=== PATIENT | female | born 2005 | race African-American/Black ===

== ENCOUNTER 2025-08-21 03:57 | Emergency (ER) | payer BC ==
[2025-08-21] MEDS ORDERED: Tranexamic Acid 1,000 MG/10 ML VIAL ONE (06:44)
== END 2025-08-21 06:45 | disposition home or self-care (01) ==
LOC: ERS 03:57
DX: S00.552A Superficial foreign body of oral cavity, initial encounter (principal); L08.9 Local infection of the skin and subcutaneous tissue, unspecified; W45.8XXA Other foreign body or object entering through skin, initial encounter
CPT/HCPCS: 99282